=== PATIENT | male | born 1950 ===

== ENCOUNTER 2024-09-24 17:11 | Outpatient (REF) | payer MEDICARE, SELFPAY ==
[2024-09-24 21:17] LABS: HCT 44.6 % (40.0-50.0); HGB 15.5 g/dL (13.5-17.5); MCHC 34.8 % (32.0-36.0); MCV 95 fL (80-95); MPV 10.7 fL (8.0-11.0); Platelet Count 167 10^3/uL (130-400); RBC 4.69 10^6/uL (4.36-5.78); RDW 12.9 % (11.8-14.1); WBC 4.08 10^3/uL (4.4-10.8)
[2024-09-24 21:56] LABS: ALT 24 U/L (16-63); AST 34 U/L (15-37); Albumin 4.2 g/dL (3.4-5.0); Alkaline Phosphatase 83 U/L (46-116); Anion Gap 9.2 mmol/L (3-11); BUN 18 mg/dL (7-18); Bilirubin, Total 3.9 mg/dL (0.2-1.0); CO2 27.8 mmol/L (21.0-32.0); CREATININE 0.8 mg/dL (0.70-1.30); Calcium 8.9 mg/dL (8.5-10.1); Calculated LDL 76 mg/dL (<100); Chloride 105 mmol/L (98-107); Cholesterol 144 mg/dL (<200); Estimated GFR 92.29 (mL/min/1.73m2); Glucose 89 mg/dL (74-106); HDL Cholesterol 58 mg/dL (>or=40); Potassium 4.1 mmol/L (3.5-5.1); Sodium 142 mmol/L (136-145); Total Protein 7.2 g/dL (6.4-8.2); Triglyceride 53 mg/dL (<150); Vitamin B12 353 pg/mL (193-986); Vitamin D 25 Total 47 ng/mL (30-100)
[2024-09-25 18:19] LABS: PSA, Screening 0.8 ng/mL (<=6.5)
== END 2024-09-24 17:12 | disposition home or self-care (01) ==
LOC: NCHCN 17:11
PROVIDERS: Visit Provider Family Medicine
DX: Z13.220 Encounter for screening for lipoid disorders (principal); M79.18 Myalgia, other site; Z12.5 Encounter for screening for malignant neoplasm of prostate; R53.82 Chronic fatigue, unspecified
CPT/HCPCS: 80053; 80061; 82306; 84153; 85027; 82607